=== PATIENT | female | born 2000 | race Caucasian/White ===

== ENCOUNTER 2020-07-11 22:09 | Emergency (ER) | payer OTHER | END 2020-07-12 00:09 | disposition home or self-care (01) | LOC: ED 22:09 | DX: T23.292A Burn of second degree of multiple sites of left wrist and hand, initial encounter (principal); T23.261A Burn of second degree of back of right hand, initial encounter; X16.XXXA Contact with hot heating appliances, radiators and pipes, initial encounter; Y93.G3 Activity, cooking and baking; Y92.098 Other place in other non-institutional residence as the place of occurrence of the external cause; Y99.9 Unspecified external cause status ==